=== PATIENT | male | born 1995 | race Two or more races ===

== ENCOUNTER 2020-12-27 19:30 | Emergency (ER) | payer MEDICAID, OTHER ==
[~2020-12-27] VITALS: Ht 182.9 cm; Wt 90.7 kg
[2020-12-27 22:30] VITALS: BP 135/80
== END 2020-12-28 05:02 | disposition home or self-care (01) ==
LOC: EDBD 19:30 → ER 19:36
DX: S43.401A Unspecified sprain of right shoulder joint, initial encounter (principal); R07.89 Other chest pain; M62.838 Other muscle spasm; M54.2 Cervicalgia; V49.59XA Passenger injured in collision with other motor vehicles in traffic accident, initial encounter; Y93.89 Activity, other specified; Y92.410 Unspecified street and highway as the place of occurrence of the external cause; Y99.8 Other external cause status
CPT/HCPCS: 71250; 72125; 73030; 73562; 93005